=== PATIENT | male | born 1995 | race African-American/Black ===

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

== ENCOUNTER → 2018-06-15 | Outpatient (CLI) | payer BC ==
[2018-06-15 19:09] LABS: CLUE CELLS PRESENT (Not Observd)
== END ==
LOC: LAB 15:55
PROVIDERS: Nurse Practitioner
DX: R36.9 Urethral discharge, unspecified (principal)
CPT/HCPCS: Q0111

== ENCOUNTER → 2018-06-16 | Outpatient (CLI) | payer BC | LOC: LAB 15:35 | DX: Z20.2 Contact with and (suspected) exposure to infections with a predominantly sexual mode of transmission (principal) ==

== ENCOUNTER 2018-06-19 14:08 | Emergency (ER) | payer BC ==
[2018-06-19 14:23] VITALS: BP 131/92
== END 2018-06-19 14:40 | disposition home or self-care (01) ==
LOC: ED 14:08
DX: B00.9 Herpesviral infection, unspecified (principal); F06.4 Anxiety disorder due to known physiological condition

== ENCOUNTER 2019-01-25 08:04 | Emergency (ER) | payer OTHER ==
[2019-01-25 08:09] VITALS: BP 117/91
[2019-01-25 08:34] LABS: EOS # 0.2 (0.04-0.40); EOS % 3.1 % (0.0-4.0); HEMATOCRIT 42.8 % (42.0-52.0); HEMOGLOBIN 14.8 g/dL (13.5-18.0); LYMPH# 1.6 (1.50-4.00); MEAN CELL VOLUME 83 fl (78-100); MEAN CORPUSCULAR HEMOGLOBIN 29 pg (27-31); MEAN CORPUSCULAR HGB CONC 35 g/dL (33-37); MEAN PLATELET VOLUME 8.5 fl (7.4-10.4); MONO # 0.9 (0.20-0.80); NEU # 4.6 (1.40-6.50); PLATELET COUNT 316 K/mm3 (130-400); RED BLOOD COUNT 5.17 M/mm3 (4.20-5.60); RED CELL DISTRIBUTION WIDTH 12.3 % (11.5-14.5); WHITE BLOOD COUNT 7.3 K/mm3 (4.8-10.8)
[2019-01-25 08:48] LABS: ALBUMIN 3.7 g/dL (3.5-5.0); POTASSIUM 3.7 mmol/L (3.5-5.1); SODIUM 137 mmol/L (136-145)
[2019-01-25 08:49] LABS: CALCIUM 9.3 mg/dL (8.3-10.5)
[2019-01-25 08:50] LABS: GLUCOSE 93 mg/dL (75-110); TOTAL PROTEIN 7.4 g/dL (6.4-8.3)
[2019-01-25 08:51] LABS: CARBON DIOXIDE 24 mmol/L (22-29)
[2019-01-25 08:52] LABS: TOTAL BILIRUBIN 0.6 mg/dL (0.2-1.2)
[2019-01-25 08:55] LABS: AST-SGOT 14 U/L (5-34)
[2019-01-25 08:56] LABS: ALCOHOL IN-HOUSE < 10 mg/dL (<10)
[2019-01-25 08:57] LABS: ALT/SGPT 13 U/L (0-55)
[2019-01-25 08:59] LABS: ACETAMINOPHEN < 1 ug/mL
[2019-01-25] MEDS ORDERED: QUETIAPINE FUM100 M1 PO (08:59)
[2019-01-25 09:02] LABS: URINE APPEARANCE CLOUDY; URINE BILIRUBIN NEGATIVE (NEGATIVE); URINE BLOOD NEGATIVE (NEGATIVE); URINE COLOR YELLOW; URINE GLUCOSE NEGATIVE (NEGATIVE); URINE KETONE NEGATIVE (NEGATIVE); URINE LEUKOCYTE ESTERASE NEGATIVE (NEGATIVE); URINE MUCUS PRESENT (NOT PRESENT); URINE NITRATE NEGATIVE (NEGATIVE); URINE PROTEIN(semi-quant) 3+ mg/dL (NEGATIVE); URINE UROBILINOGEN NORMAL (NORMAL)
[2019-01-25] MEDS ORDERED: CLONIDINE HYDR0.1 MG PO (12:03)
== END 2019-01-25 15:33 ==
LOC: ED 08:04
PROVIDERS: Nurse Practitioner Primary Care
DX: R45.851 Suicidal ideations (principal); F19.10 Other psychoactive substance abuse, uncomplicated; F31.9 Bipolar disorder, unspecified; F17.210 Nicotine dependence, cigarettes, uncomplicated

== ENCOUNTER 2019-07-09 06:10 | Emergency (ER) | payer SELFPAY ==
[~2019-07-09 06:10] MED LIST: CLONIDINE HYDR0.1 MG PO; QUETIAPINE FUM100 M1 PO
[2019-07-09] MEDS ORDERED: BACTRIM DS 8001 TAB PO (06:32)
[2019-07-09 08:13] VITALS: BP 123/88
== END 2019-07-09 08:13 | disposition home or self-care (01) ==
LOC: ED 06:10
DX: L03.114 Cellulitis of left upper limb (principal); F31.9 Bipolar disorder, unspecified; F17.210 Nicotine dependence, cigarettes, uncomplicated; Z23 Encounter for immunization
CPT/HCPCS: 90715; J0696

== ENCOUNTER → 2020-11-28 | Outpatient (CLI) | payer SELFPAY ==
[~2020-11-28] MED LIST changes: +BACTRIM DS 8001 TAB PO
== END ==
LOC: LAB 17:30
DX: Z20.2 Contact with and (suspected) exposure to infections with a predominantly sexual mode of transmission (principal)

== ENCOUNTER → 2020-12-06 | Outpatient (CLI) | payer SELFPAY | LOC: LAB 10:32 | DX: N50.819 Testicular pain, unspecified (principal) ==

== ENCOUNTER 2021-02-19 23:54 | Emergency (ER) | payer SELFPAY ==
[2021-02-20 00:58] LABS: BASO # 0.02 (0.02-0.10); EOS # 0.17 (0.04-0.40); HEMATOCRIT 39.8 % (42.0-52.0); LYMPH# 2.54 (1.50-4.00); MEAN CELL VOLUME 86 fl (78-100); MEAN CORPUSCULAR HEMOGLOBIN 28 pg (27-31); MEAN CORPUSCULAR HGB CONC 33 g/dL (33-37); MEAN PLATELET VOLUME 8.9 fl (7.4-10.4); MONO # 0.74 (0.20-0.80); NEU # 5.01 (1.40-6.50); PLATELET COUNT 290 K/mm3 (130-400); RED BLOOD COUNT 4.64 M/mm3 (4.20-5.60); RED CELL DISTRIBUTION WIDTH 12.8 % (11.5-14.5); WHITE BLOOD COUNT 8.5 K/mm3 (4.8-10.8)
[2021-02-20 01:07] LABS: URINE APPEARANCE CLEAR; URINE BILIRUBIN NEGATIVE (NEGATIVE); URINE BLOOD NEGATIVE (NEGATIVE); URINE COLOR YELLOW; URINE GLUCOSE NEGATIVE (NEGATIVE); URINE KETONE NEGATIVE (NEGATIVE); URINE LEUKOCYTE ESTERASE NEGATIVE (NEGATIVE); URINE NITRATE NEGATIVE (NEGATIVE); URINE PROTEIN(semi-quant) TRACE mg/dL (NEGATIVE); URINE UROBILINOGEN NORMAL (NORMAL); URINE WBC 0-1 /hpf (0-3)
[2021-02-20 01:09] LABS: ALBUMIN 3.7 g/dL (3.5-5.0); POTASSIUM 3.4 mmol/L (3.5-5.1); SODIUM 136 mmol/L (136-145)
[2021-02-20 01:10] LABS: CALCIUM 8.8 mg/dL (8.3-10.5)
[2021-02-20 01:11] LABS: GLUCOSE 118 mg/dL (75-110)
[2021-02-20 01:12] LABS: CARBON DIOXIDE 22 mmol/L (22-29); TOTAL PROTEIN 7.1 g/dL (6.4-8.3)
[2021-02-20 01:13] LABS: TOTAL BILIRUBIN 0.4 mg/dL (0.2-1.2)
[2021-02-20 01:17] LABS: AST-SGOT 24 U/L (5-34)
[2021-02-20 01:18] LABS: ALT/SGPT 22 U/L (0-55)
[2021-02-20 01:28] LABS: ACETAMINOPHEN < 1 ug/mL; ALCOHOL IN-HOUSE < 10 mg/dL (<10)
[2021-02-20 09:04] VITALS: BP 92/55
== END 2021-02-20 08:55 | disposition short-term general hospital (02) ==
LOC: ED 23:54
PROVIDERS: Nurse Practitioner
DX: R45.850 Homicidal ideations (principal); Z20.822 Contact with and (suspected) exposure to COVID-19

== ENCOUNTER → 2022-06-20 | Outpatient (CLI) | payer SELFPAY ==
[2022-06-20 13:55] LABS: BASO # 0.03 K/mm3 (0.02-0.10); EOS # 0.11 K/mm3 (0.04-0.40); EOS % 1.6 % (0.0-4.0); HEMATOCRIT 45.3 % (42.0-52.0); HEMOGLOBIN 14.9 g/dL (13.5-18.0); LYMPH# 1.88 K/mm3 (1.50-4.00); MEAN CELL VOLUME 86 fl (78-100); MEAN CORPUSCULAR HEMOGLOBIN 28 pg (27-31); MEAN CORPUSCULAR HGB CONC 33 g/dL (33-37); MEAN PLATELET VOLUME 8.8 fl (7.4-10.4); MONO # 0.56 K/mm3 (0.20-0.80); NEU # 4.14 K/mm3 (1.40-6.50); PLATELET COUNT 262 K/mm3 (130-400); RED BLOOD COUNT 5.26 M/mm3 (4.20-5.60); RED CELL DISTRIBUTION WIDTH 13.2 % (11.5-14.5); WHITE BLOOD COUNT 6.7 K/mm3 (4.8-10.8)
[2022-06-20 13:59] LABS: ALBUMIN 4.2 g/dL (3.5-5.0)
[2022-06-20 14:00] LABS: CALCIUM 9.3 mg/dL (8.3-10.5)
[2022-06-20 14:02] LABS: TOTAL PROTEIN 7.9 g/dL (6.4-8.3)
[2022-06-20 14:04] LABS: TOTAL BILIRUBIN 0.5 mg/dL (0.2-1.2)
[2022-06-21 00:01] LABS: HEPATITIS C ANTIBODY Negative (Negative)
== END ==
LOC: LAB 13:20
PROVIDERS: Nurse Practitioner
DX: R14.0 Abdominal distension (gaseous) (principal); F19.11 Other psychoactive substance abuse, in remission; R10.13 Epigastric pain

== ENCOUNTER → 2022-08-29 | Outpatient (CLI) | payer MEDICAID | LOC: LAB 13:58 | DX: R30.9 Painful micturition, unspecified (principal); N45.1 Epididymitis; Z20.2 Contact with and (suspected) exposure to infections with a predominantly sexual mode of transmission ==

== ENCOUNTER 2022-09-18 23:44 | Emergency (ER) | payer OTHER ==
[~2022-09-18] VITALS: Ht 188 cm; Wt 166.4 kg
[~2022-09-18 23:44] MED LIST changes: -BACTRIM DS TAB1 EACH PO; -DEPAKOTE ER 25250 MG; -PROZAC10 M2 PO; -SEROQUEL300 M1 PO; -WELLBUTRIN 75MG75 MG
[2022-09-19] MEDS ORDERED: SEROQUEL300 M1 PO (00:43)
[2022-09-19] MEDS ORDERED: DEPAKOTE ER 25250 MG (00:43)
[2022-09-19] MEDS ORDERED: WELLBUTRIN 75MG75 MG (00:44)
[2022-09-19] MEDS ORDERED: BACTRIM DS TAB1 EACH PO (01:04)
[2022-09-19 01:10] VITALS: BP 112/68
[2022-09-19] MEDS ORDERED: PROZAC10 M2 PO (02:48)
== END 2022-09-19 01:10 | disposition home or self-care (01) ==
LOC: ED 23:44
DX: L03.114 Cellulitis of left upper limb (principal); E66.9 Obesity, unspecified; Z28.310 Unvaccinated for COVID-19

== ENCOUNTER → 2022-09-18 | Outpatient (CLI) | payer MEDICAID ==
[~2022-09-18] MED LIST changes: +BACTRIM DS TAB1 EACH PO; +DEPAKOTE ER 25250 MG; +PROZAC10 M2 PO; +SEROQUEL300 M1 PO; +WELLBUTRIN 75MG75 MG
[2022-09-18 13:13] LABS: BASO # 0.01 K/mm3 (0.02-0.10); EOS # 0.09 K/mm3 (0.04-0.40); EOS % 0.9 % (0.0-4.0); HEMATOCRIT 43.5 % (42.0-52.0); HEMOGLOBIN 14.3 g/dL (13.5-18.0); LYMPH# 1.86 K/mm3 (1.50-4.00); MEAN CELL VOLUME 84 fl (78-100); MEAN CORPUSCULAR HEMOGLOBIN 28 pg (27-31); MEAN CORPUSCULAR HGB CONC 33 g/dL (33-37); MEAN PLATELET VOLUME 8.8 fl (7.4-10.4); MONO # 0.86 K/mm3 (0.20-0.80); NEU # 6.74 K/mm3 (1.40-6.50); PLATELET COUNT 231 K/mm3 (130-400); RED BLOOD COUNT 5.18 M/mm3 (4.20-5.60); RED CELL DISTRIBUTION WIDTH 12.6 % (11.5-14.5); WHITE BLOOD COUNT 9.6 K/mm3 (4.8-10.8)
[2022-09-18 13:18] LABS: ALBUMIN 4.1 g/dL (3.5-5.0); POTASSIUM 4.4 mmol/L (3.5-5.1)
[2022-09-18 13:20] LABS: CALCIUM 9.6 mg/dL (8.3-10.5)
[2022-09-18 13:21] LABS: TOTAL PROTEIN 7.5 g/dL (6.4-8.3)
[2022-09-18 13:23] LABS: TOTAL BILIRUBIN 0.3 mg/dL (0.2-1.2)
[2022-09-19 10:18] LABS: HEPATITIS C ANTIBODY Negative (Negative)
== END ==
LOC: LAB 12:50
PROVIDERS: Nurse Practitioner Family
DX: Z20.2 Contact with and (suspected) exposure to infections with a predominantly sexual mode of transmission (principal); L03.114 Cellulitis of left upper limb

== ENCOUNTER → 2022-09-20 | Outpatient (CLI) | payer OTHER ==
[~2022-09-20] MED LIST changes: +BACTRIM DS TAB1 EACH PO; +DEPAKOTE ER 25250 MG; +PROZAC10 M2 PO; +SEROQUEL300 M1 PO; +WELLBUTRIN 75MG75 MG
[2022-09-20 12:29] LABS: BASO # 0.02 K/mm3 (0.02-0.10); EOS # 0.13 K/mm3 (0.04-0.40); EOS % 1.7 % (0.0-4.0); HEMATOCRIT 42.4 % (42.0-52.0); LYMPH# 1.51 K/mm3 (1.50-4.00); MEAN CELL VOLUME 84 fl (78-100); MEAN CORPUSCULAR HEMOGLOBIN 28 pg (27-31); MEAN CORPUSCULAR HGB CONC 33 g/dL (33-37); MEAN PLATELET VOLUME 8.7 fl (7.4-10.4); MONO # 0.47 K/mm3 (0.20-0.80); NEU # 5.42 K/mm3 (1.40-6.50); PLATELET COUNT 256 K/mm3 (130-400); RED BLOOD COUNT 5.03 M/mm3 (4.20-5.60); RED CELL DISTRIBUTION WIDTH 12.6 % (11.5-14.5); WHITE BLOOD COUNT 7.6 K/mm3 (4.8-10.8)
[2022-09-20 12:31] LABS: POTASSIUM 4.4 mmol/L (3.5-5.1)
[2022-09-20 12:32] LABS: CALCIUM 9.4 mg/dL (8.3-10.5)
[2022-09-20 12:33] LABS: TOTAL PROTEIN 8.6 g/dL (6.4-8.3)
[2022-09-20 12:35] LABS: TOTAL BILIRUBIN 0.3 mg/dL (0.2-1.2)
[2022-09-26 10:21] LABS: ERYTHROCYTE SEDIMENTATION RATE 38 mm/hr (0-15)
== END ==
LOC: LAB 12:14
PROVIDERS: Nurse Practitioner Family
DX: L03.114 Cellulitis of left upper limb (principal)